=== PATIENT | female | born 1985 | race Caucasian/White ===

== ENCOUNTER 2018-08-09 19:05 | Emergency (ER) | payer OTHER ==
[2018-08-09 19:45] LABS: PLATELET COUNT 271 10^3/uL (150-400)
--- NOTE | 2018-08-09 20:22 | EDPHY ---
H & P Time Seen by Provider: 08/09/18 19:16 HPI/ROS: HPI . Vaginal bleeding. 32-year-old female by private vehicle with her . This patient is a . Previous 18 years with elective . She states that she is currently 5 weeks by dates. She reports that on Wednesday she had some spotting. This then resolved the spotting returned again today and this evening she had which she describes as scant bleeding. She has not been passing clots. Denies significant abdominal pain. No urinary complaints. No fever. No back pain. ROS: Constitutional: No fever, no chills. No weakness. Eyes: No discharge. No changes in vision. ENT: No sore throat. No nasal congestion or rhinorrhea. Respiratory: No cough. No shortness of breath. Cardiac: No chest pain, no palpitations. Gastrointestinal: No abdominal pain, no vomiting, no diarrhea. Genitourinary: No hematuria. No dysuria or increased frequency with urination. As above. No vaginal discharge. Musculoskeletal: No back pain. No neck pain. No myalgias or arthralgias. Skin: No rashes. Neurological: No headache. No focal weakness or altered sensation. Past medical history: As above. Hernia, appendectomy. Otherwise no past medical history. Social history: Here currently with her . Nonsmoker. No alcohol. Physical Exam: General Appearance: Alert, no distress. This patient is responding to questions appropriately and in full sentences. This patient appears well- hydrated and well-nourished. Eyes: Pupils equal and round no pallor or injection. No lid edema, erythema or injection. Respiratory: There are no retractions, lungs are clear to auscultation with good air movement bilaterally. Cardiovascular: Regular rate and rhythm. No murmur. Gastrointestinal: Abdomen is soft and nontender, no masses, bowel sounds normal. No focal tenderness at McBurney's point. No Avendaño sign. Neurological: Motor sensory function is grossly intact. Cranial nerves are normal. Gait is normal. Skin: Warm and dry, no rashes. Musculoskeletal: Neck is supple and nontender. Extremities are symmetrical. All joints range without pain or impingement. Psychiatric: No agitation. No depression. Database: EKG: Imaging: Pelvic ultrasound: Empty uterus. Unremarkable study. Results were discussed with staff radiologist Dr. Johnathon Garcia. Procedures: Emergency department course: Triage vital signs reviewed and are normal. IV was placed in triage. Pelvic ultrasound to be obtained. Appropriate blood work ordered. Patient consents to workup. 8:45 p.m., the patient was re-evaluated. She is resting comfortably at this time. Results of her ultrasound discussed with her. Results of her blood work reviewed. She has a follow-up appointment with her OBGYN this . She will go to that appointment to be re-evaluated and have her beta HCG repeated. She understands the importance of her follow-up. Return to emergency department precautions reviewed with her and her . All of their questions were answered. The patient was discharged home in good condition with her . Differential Diagnosis: The differential diagnosis on this patient includes but is not limited to threatened miscarriage. Completed , ectopic unlikely. This represents a partial list of diagnoses considered. These considerations are based on history, physical exam, past history, reassessment and diagnostic testing. Smoking Status: Current every day smoker Constitutional: Initial Vital Signs Temperature (C) 36.6 C 08/09/18 19:08 Heart Rate 89 08/09/18 19:08 Respiratory Rate 16 08/09/18 19:08 Blood Pressure 111/75 08/09/18 19:08 O2 Sat (%) 98 08/09/18 19:08 O2 Delivery Mode Room Air Allergies/Adverse Reactions: No Known Allergies Allergy (Unverified 08/09/18 19:08) Home Medications: Medication Instructions Recorded NK [No Known Home Meds] 08/09/18 Medical Decision Making - Diagnostics Imaging Results: Imaging Impressions Obstetrics Ultrasound 08/09/18 19:17 Impression: 1. Empty uterus. 2. Probable corpus luteum cyst, right ovary. Results called to Dr. Rodriguez at 8:30 PM. - Data Points Laboratory Results: Laboratory Results 08/09/18 19:36 08/09/18 08/09/18 08/09/18 19:50 19:36 19:36 WBC RBC Hgb Hct MCV MCH MCHC RDW Plt Count MPV Neut % (Auto) Lymph % (Auto) Gates % (Auto) Eos % (Auto) Baso % (Auto) Nucleat RBC Rel Count Absolute Neuts (auto) Absolute Lymphs (auto) Absolute Monos (auto) Absolute Eos (auto) Absolute Basos (auto) Absolute Nucleated RBC Immature Gran % Immature Gran # Beta HCG, Quant 241.61 mIU/mL H mIU/mL (0.00-4.83) Urine Color YELLOW Urine Appearance CLEAR Urine pH 6.0 (5.0-7.5) Ur Specific [place] 1.011 (1.002-1.030) Urine Protein NEGATIVE (NEGATIVE) Urine Ketones NEGATIVE (NEGATIVE) Urine Blood 3+ H (NEGATIVE) Urine Nitrate NEGATIVE (NEGATIVE) Urine Bilirubin NEGATIVE (NEGATIVE) Urine Urobilinogen NEGATIVE EU EU (0.2-1.0) Ur Leukocyte Esterase NEGATIVE (NEGATIVE) Urine RBC 50-182 /hpf H /hpf (0-3) Urine WBC 5-10 /hpf H /hpf (0-3) Ur Epithelial Cells TRACE /lpf /lpf (NONE-1+) Urine Bacteria TRACE /hpf H /hpf (NONE SEEN) Urine Glucose NEGATIVE (NEGATIVE) Patient ABO/Rh AB POSITIVE 08/09/18 19:36 WBC 8.38 10^3/uL 10^3/uL (3.80-9.50) RBC 4.69 10^6/uL 10^6/uL (4.18-5.33) Hgb 15.1 g/dL g/dL (12.6-16.3) Hct 44.4 % % (38.0-47.0) MCV 94.7 fL fL (81.5-99.8) MCH 32.2 pg pg (27.9-34.1) MCHC 34.0 g/dL g/dL (32.4-36.7) RDW 12.4 % % (11.5-15.2) Plt Count 271 10^3/uL 10^3/uL (150-400) MPV 10.4 fL fL (8.7-11.7) Neut % (Auto) 48.5 % % (39.3-74.2) Lymph % (Auto) 42.1 % % (15.0-45.0) Gates % (Auto) 6.0 % % (4.5-13.0) Eos % (Auto) 2.6 % % (0.6-7.6) Baso % (Auto) 0.6 % % (0.3-1.7) Nucleat RBC Rel Count 0.0 % % (0.0-0.2) Absolute Neuts (auto) 4.06 10^3/uL 10^3/uL (1.70-6.50) Absolute Lymphs (auto) 3.53 10^3/uL H 10^3/uL (1.00-3.00) Absolute Monos (auto) 0.50 10^3/uL 10^3/uL (0.30-0.80) Absolute Eos (auto) 0.22 10^3/uL 10^3/uL (0.03-0.40) Absolute Basos (auto) 0.05 10^3/uL 10^3/uL (0.02-0.10) Absolute Nucleated RBC 0.00 10^3/uL 10^3/uL (0-0.01) Immature Gran % 0.2 % % (0.0-1.1) Immature Gran # 0.02 10^3/uL 10^3/uL (0.00-0.10) Beta HCG, Quant Urine Color Urine Appearance Urine pH Ur Specific [place] Urine Protein Urine Ketones Urine Blood Urine Nitrate Urine Bilirubin Urine Urobilinogen Ur Leukocyte Esterase Urine RBC Urine WBC Ur Epithelial Cells Urine Bacteria Urine Glucose Patient ABO/Rh Departure - Departure Disposition: [facility] Inpatient Acute Clinical Impression: Complete miscarriage Condition: Good Instructions: Miscarriage (ED) Additional Instructions: Read and follow provided instructions. Follow-up with your OBGYN as scheduled this for re-evaluation. Explain you are in the emergency department today. You should have your beta HCG repeated at that time. Return to the emergency department for abdominal pain, worsening vaginal bleeding or other serious concerns. Referrals: NONE *PRIMARY CARE P,. [Primary Care Provider] - As per Instructions
[2018-08-09 20:58] VITALS: BP 119/83
== END 2018-08-09 20:58 | disposition still patient (30) ==
DX: O03.9 Complete or unspecified spontaneous abortion without complication (principal); Z3A.01 Less than 8 weeks gestation of pregnancy

== ENCOUNTER → 2019-01-19 | Outpatient (CLI) | payer OTHER | LOC: FIMAGING 14:28 | PROVIDERS: ATTEND Obstetrics & Gynecology | DX: O09.291 Supervision of pregnancy with other poor reproductive or obstetric history, first trimester (principal); O99.321 Drug use complicating pregnancy, first trimester; Z3A.12 12 weeks gestation of pregnancy ==